=== PATIENT | male | born 1975 | race Caucasian/White ===

== ENCOUNTER 2018-05-30 11:24 | Emergency (ER) | payer OTHER ==
[2018-05-30] MEDS ORDERED: KETOROLAC 60 MG/2 ML VIAL IVP STA (12:04)
[2018-05-30] MEDS ORDERED: DIAZEPAM 5 MG/ML 2 ML INJ IVP STA (12:07)
[2018-05-30] MEDS ORDERED: ONDANSETRON 4 MG/2 ML VIAL IVP STA (12:11)
--- NOTE | 2018-05-30 12:11 | ED ---
General Adult HPI - General Chief complaint: Back Pain/Injury Stated complaint: back pain Time Seen by Provider: 05/30/18 11:25 Source: patient, RN notes reviewed Mode of arrival: wheelchair Limitations: no limitations - History of Present Illness Initial comments: This is a 42-year-old male with past medical history significant for chronic back problems. Patient states he recently had an MRI that showed another disc that was bulging a little bit. Patient states yesterday he was out chopping wood and caused him pain in the right lower back and he states it's very tender to palpation as well. Patient denies any new numbness or weakness. Patient denies any bladder retention or incontinence. Patient states it's the same pain he had the past when he chopped wood about 3 months ago. Patient states he has not followed up with his neurologist after his last injury though he was supposed to. Patient states she took Motrin and Neurontin it upset his stomach and now he has some abdominal pain as well patient denies any single area of pain it is diffuse. Patient states she was nauseated earlier vomited times one. Patient denies any fever chills patient denies any chest pain difficult breathing shortest breath. Patient denies any headache patient denies any lightheadedness or dizziness. - Related Data Home Medications Medication Instructions Recorded Confirmed Doxycycline [Vibramycin] 100 mg PO BID 05/30/18 05/30/18 Gabapentin [Neurontin] 100 mg PO DAILY PRN 05/30/18 05/30/18 Ibuprofen [Motrin] 800 mg PO Q6HR 05/30/18 05/30/18 Previous Rx's Medication Instructions Recorded Cyclobenzaprine [Flexeril] 10 mg PO TID #20 tab 05/30/18 Ibuprofen [Motrin] 600 mg PO Q6HR PRN #20 tab 05/30/18 Allergies Allergy/AdvReac Type Severity Reaction Status Date / Time Penicillins Allergy Anaphylaxis Verified 05/30/18 11:49 Review of Systems ROS Statement: Those systems with pertinent positive or pertinent negative responses have been documented in the HPI. ROS Other: All systems not noted in ROS Statement are negative. Past Medical History Additional Past Medical History / Comment(s): back pain History of Any Multi-Drug Resistant Organisms: None Reported Past Surgical History: Back Surgery Additional Past Surgical History / Comment(s): left shoulder surgery Past Psychological History: No Psychological Hx Reported Smoking Status: Current every day smoker Past Alcohol Use History: Rare Past Drug Use History: Marijuana General Exam - General Exam Comments Initial Comments: GENERAL: Patient is well-developed and well-nourished. Patient is nontoxic and well- hydrated and is in moderate distress. ENT: Neck is soft and supple. No significant lymphadenopathy is noted. Oropharynx is clear. Moist mucous membranes. Neck has full range of motion without eliciting any pain. EYES: The sclera were anicteric and conjunctiva were pink and moist. Extraocular movements were intact and pupils were equal round and reactive to light. Eyelids were unremarkable. PULMONARY: Unlabored respirations. Good breath sounds bilaterally. No audible rales rhonchi or wheezing was noted. CARDIOVASCULAR: There is a regular rate and rhythm without any murmurs gallops or rubs. ABDOMEN: Mild tenderness diffusely. No palpable organomegaly was noted. There is no palpable pulsatile mass. SKIN: Skin is clear with no lesions or rashes and otherwise unremarkable. NEUROLOGIC: Patient is alert and oriented x3. Cranial nerves II through XII are grossly intact. Motor and sensory are also intact. Normal speech, volume and content. Symmetrical smile. Straight leg test is negative bilaterally MUSCULOSKELETAL: Normal extremities with adequate strength and full range of motion. No lower extremity swelling or edema. No calf tenderness. Palpating the lower right back elicits the pain the patient came to the emergency department for. LYMPHATICS: No significant lymphadenopathy is noted PSYCHIATRIC: Normal psychiatric evaluation. Limitations: no limitations Course Vital Signs 05/30/18 05/30/18 05/30/18 11:26 12:40 13:00 Temperature 97.3 F L Pulse Rate 58 L 61 64 Respiratory 20 Rate Blood Pressure 127/70 112/60 112/60 O2 Sat by Pulse 100 96 95 Oximetry 05/30/18 05/30/18 13:20 14:00 Temperature Pulse Rate 62 64 Respiratory 18 18 Rate Blood Pressure 119/69 117/78 O2 Sat by Pulse 96 98 Oximetry Medical Decision Making - Medical Decision Making I called the Hospital and they sent us the CT of the patient's abdomen from a few months ago. It was unremarkable. I went back into reevaluate the patient he was doing considerably better and felt good enough to go home. Patient has a follow-up appointment in less than a week with his primary medical care doctor. - Lab Data Result diagrams: 05/30/18 12:27 05/30/18 12:27 Lab Results 05/30/18 05/30/18 05/30/18 Range/Units 12:27 12:27 13:12 WBC 8.6 (3.8-10.6) k/uL RBC 5.40 (4.30-5.90) m/uL Hgb 15.1 (13.0-17.5) gm/dL Hct 45.6 (39.0-53.0) % MCV 84.4 (80.0-100.0) fL MCH 28.0 (25.0-35.0) pg MCHC 33.1 (31.0-37.0) g/dL RDW 13.2 (11.5-15.5) % Plt Count 262 (150-450) k/uL Neutrophils % 72 % Lymphocytes % 16 % Monocytes % 8 % Eosinophils % 1 % Basophils % 0 % Neutrophils # 6.2 (1.3-7.7) k/uL Lymphocytes # 1.4 (1.0-4.8) k/uL Monocytes # 0.7 (0-1.0) k/uL Eosinophils # 0.1 (0-0.7) k/uL Basophils # 0.0 (0-0.2) k/uL Sodium 139 (137-145) mmol/L Potassium 4.2 (3.5-5.1) mmol/L Chloride 109 H (98-107) mmol/L Carbon Dioxide 21 L (22-30) mmol/L Anion Gap 9 mmol/L BUN 13 (9-20) mg/dL Creatinine 0.67 (0.66-1.25) mg/dL Est GFR (CKD-EPI)AfAm >90 (>60 ml/min/1.73 sqM) Est GFR (CKD-EPI)NonAf >90 (>60 ml/min/1.73 sqM) Glucose 100 H (74-99) mg/dL Calcium 9.7 (8.4-10.2) mg/dL Total Bilirubin 1.1 (0.2-1.3) mg/dL AST 26 (17-59) U/L ALT 35 (21-72) U/L Alkaline Phosphatase 84 (38-126) U/L Total Protein 7.2 (6.3-8.2) g/dL Albumin 4.4 (3.5-5.0) g/dL Amylase 47 (30-110) U/L Lipase 80 (23-300) U/L Urine Color Yellow Urine Appearance Clear (Clear) Urine pH 8.0 (5.0-8.0) Ur Specific [place] 1.022 (1.001-1.035) Urine Protein Trace H (Negative) Urine Glucose (UA) Negative (Negative) Urine Ketones 4+ H (Negative) Urine Blood Negative (Negative) Urine Nitrite Negative (Negative) Urine Bilirubin Negative (Negative) Urine Urobilinogen <2.0 (<2.0) mg/dL Ur Leukocyte Esterase Negative (Negative) Urine Opiates Screen Not Detected (NotDetected) Ur Oxycodone Screen Not Detected (NotDetected) Urine Methadone Screen Not Detected (NotDetected) Ur Propoxyphene Screen Not Detected (NotDetected) Ur Barbiturates Screen Not Detected (NotDetected) U Tricyclic Antidepress Not Detected (NotDetected) Ur Phencyclidine Scrn Not Detected (NotDetected) Ur Amphetamines Screen Not Detected (NotDetected) U Methamphetamines Scrn Not Detected (NotDetected) U Benzodiazepines Scrn Not Detected (NotDetected) Urine Cocaine Screen Not Detected (NotDetected) U Marijuana (THC) Screen Detected H (NotDetected) Disposition Clinical Impression: Strain of lumbar region, Chronic back pain Disposition: HOME SELF-CARE Instructions: Chronic Back Pain (ED) Prescriptions: Cyclobenzaprine [Flexeril] 10 mg PO TID #20 tab Ibuprofen [Motrin] 600 mg PO Q6HR PRN #20 tab PRN Reason: For pain Is patient prescribed a controlled substance at d/c from ED?: No Referrals: Perry Yoo PAC [Primary Care Provider] - 1-2 days Time of Disposition: 14:21
--- NOTE | 2018-05-30 12:45 | XR ---
EXAMINATION TYPE: XR KUB DATE OF EXAM: 05/30/2018 COMPARISON: NONE HISTORY: Pain TECHNIQUE: Single supine KUB image of the abdomen is obtained FINDINGS: Small bowel demonstrates no evidence for dilatation or air fluid levels. Gas and fecal material is seen in non-distended colon. No convincing evidence for pneumoperitoneum. No unusual calcifications. The lung bases are clear. The osseous structures are intact. IMPRESSION: 1. Overall nonobstructive bowel gas pattern.
[2018-05-30 12:48] LABS: Basophils % (A) 0 %; Eosinophils # (A) 0.1 k/uL (0-0.7); Eosinophils % (A) 1 %; HCT 45.6 % (39.0-53.0); HGB 15.1 gm/dL (13.0-17.5); Lymphocytes # (A) 1.4 k/uL (1.0-4.8); Lymphocytes % (A) 16 %; MCHC 33.1 g/dL (31.0-37.0); MCV 84.4 fL (80.0-100.0); Mean Platelet Volume 7.1; Monocytes # (A) 0.7 k/uL (0-1.0); Monocytes % (A) 8 %; Neutrophils # (A) 6.2 k/uL (1.3-7.7); Neutrophils % (A) 72 %; Platelet Count 262 k/uL (150-450); RDW 13.2 % (11.5-15.5); WBC 8.6 k/uL (3.8-10.6)
[2018-05-30 13:06] LABS: ALT 35 U/L (21-72); AST 26 U/L (17-59); Albumin 4.4 g/dL (3.5-5.0); Alkaline Phosphatase 84 U/L (38-126); Amylase 47 U/L (30-110); Anion Gap 9 mmol/L; Blood Urea Nitrogen 13 mg/dL (9-20); Calcium 9.7 mg/dL (8.4-10.2); Carbon Dioxide 21 mmol/L (22-30); Chloride 109 mmol/L (98-107); Glucose 100 mg/dL (74-99); Lipase 80 U/L (23-300); Potassium 4.2 mmol/L (3.5-5.1); Sodium 139 mmol/L (137-145); Total Bilirubin 1.1 mg/dL (0.2-1.3); Total Protein 7.2 g/dL (6.3-8.2)
[2018-05-30 13:35] LABS: Appearance,Urine Clear (Clear); Bilirubin,Urine Negative (Negative); Blood,Urine Negative (Negative); Color,Urine Yellow; Glucose,Urine (UA) Negative (Negative); Ketones,Urine 4+ (Negative); Leukocyte Esterase,Urine Negative (Negative); Nitrite,Urine Negative (Negative); Protein,Urine Trace (Negative); Specific Gravity,Urine 1.022 (1.001-1.035); Urobilinogen,Urine <2.0 mg/dL (<2.0)
[2018-05-30 13:54] LABS: Amphetamine Screen,Urine Not Detected (NotDetected); Barbiturate Screen,Urine Not Detected (NotDetected); Benzodiazepines Screen,Urine Not Detected (NotDetected); Cocaine Screen,Urine Not Detected (NotDetected); Methadone Screen, Urine Not Detected (NotDetected); Opiate Screen,Urine Not Detected (NotDetected); Oxycodone Screen, Urine Not Detected (NotDetected); Phencyclidine Screen,Urine Not Detected (NotDetected); Tricyclic Antidepressant,Urine Not Detected (NotDetected); Urn Cannabinoid Scrn Detected (NotDetected)
[2018-05-30] MEDS ORDERED: HYDROmorphone 1 MG/ML 1 ML SYRINGE IVP STA (14:01)
[2018-05-30 14:07] VITALS: RESP 18
[2018-05-30 14:34] VITALS: BP 106/64; PULSE 65; TEMP 98.1
== END 2018-05-30 14:31 | disposition home or self-care (01) ==
LOC: EC 11:24
DX: S39.012A Strain of muscle, fascia and tendon of lower back, initial encounter (principal); G89.29 Other chronic pain; R10.84 Generalized abdominal pain; R11.2 Nausea with vomiting, unspecified; F17.200 Nicotine dependence, unspecified, uncomplicated; Z79.1 Long term (current) use of non-steroidal anti-inflammatories (NSAID); Z88.0 Allergy status to penicillin; Z98.890 Other specified postprocedural states; X58.XXXA Exposure to other specified factors, initial encounter; Y93.89 Activity, other specified; Y92.009 Unspecified place in unspecified non-institutional (private) residence as the place of occurrence of the external cause
CPT/HCPCS: 36415; 80053; 82150; 83690; 85025; 81003; 80306; 74018; 99284; 96374; 96375 ×3; J3360; J2405; J1885; J1170